=== PATIENT | male | born 1975 | race Caucasian/White ===

== ENCOUNTER 2020-06-20 19:58 | Emergency (ER) | payer BC ==
[2020-06-20] MEDS: Alum Hydrox/Mag Hydrox/Simeth 30 ML, Lidocaine 2% 15 ML PO ONE ×2 (20:22)
--- NOTE | 2020-06-20 20:43 | EDM.PDOC ---
ED HPI GENERAL MEDICAL PROBLEM - General Chief Complaint: Abdominal Pain Stated Complaint: ABDOMINAL PAIN Time Seen by Provider: 06/20/20 20:27 Source of Information: Reports: Patient History Limitations: Reports: No Limitations - History of Present Illness INITIAL COMMENTS - FREE TEXT/NARRATIVE: Patient is a 44-year-old gentleman who presents to the emergency department this evening via private vehicle with a complaint of abdominal pain. Patient states that this is a chronic condition. It happens intermittently, however, after eating this evening he felt an ache in his upper abdomen. He took a Zantac and ibuprofen and symptoms did not resolve, so decided to present to the ER. He's had similar symptoms in the past, but it went away quickly. Patient denies chest pain, shortness of breath, nausea, vomiting, diarrhea, dysuria, testicular pain, flank pain, fever, blood in stool, out of area travel, or concern for covid exposure. Onset: Gradual Duration: Chronic Location: Reports: Abdomen Quality: Reports: Ache Severity: Mild Improves with: Reports: Other (Spontaneously) Worsens with: Reports: Eating Associated Symptoms: Reports: No Other Symptoms. Denies: Chest Pain, Fever/Chills, Nausea/Vomiting, Shortness of Breath - Related Data Allergies Allergy/AdvReac Type Severity Reaction Status Date / Time No Known Drug Allergies Allergy Cannot Verified 06/20/20 20:59 Remember Home Meds: Home Meds Aspirin [Halfprin] 81 mg PO DAILY 06/20/20 [History] Flaxseed Oil 1 cap PO DAILY 06/20/20 [History] Losartan [Cozaar] 50 mg PO DAILY 06/20/20 [History] Montelukast [Singulair] 10 mg PO BEDTIME 06/20/20 [History] Brewster-3 Fatty Acids/Fish Oil [Fish Oil 1,000 mg Softgel] 1,000 mg PO DAILY 06/20/20 [History] Omeprazole 20 mg PO QAM 06/20/20 [History] Simvastatin 20 mg PO BEDTIME 06/20/20 [History] amLODIPine [Norvasc] 5 mg PO DAILY 06/20/20 [History] hydroCHLOROthiazide [Hydrochlorothiazide] 12.5 mg PO DAILY 06/20/20 [History] ED ROS GENERAL - Review of Systems Review Of Systems: Comprehensive ROS is negative, except as noted in HPI. Constitutional: Reports: No Symptoms HEENT: Reports: No Symptoms Respiratory: Reports: No Symptoms Cardiovascular: Reports: No Symptoms Endocrine: Reports: No Symptoms GI/Abdominal: Reports: Abdominal Pain : Reports: No Symptoms Musculoskeletal: Reports: No Symptoms Skin: Reports: No Symptoms Neurological: Reports: No Symptoms Psychiatric: Reports: No Symptoms Hematologic/Lymphatic: Reports: No Symptoms Immunologic: Reports: No Symptoms ED EXAM, GI/ABD - Physical Exam Exam: See Below Exam Limited By: No Limitations General Appearance: Alert, WD/WN, No Apparent Distress Nose: Normal Inspection, Normal Mucosa, No Blood Throat/Mouth: Normal Inspection, Normal Oropharynx, No Airway Compromise Head: Atraumatic, Normocephalic Neck: Normal Inspection, Thyromegaly Respiratory/Chest: No Respiratory Distress, Lungs Clear, No Accessory Muscle Use, Chest Non-Tender Cardiovascular: Regular Rate, Rhythm, No Murmur GI/Abdominal Exam: Normal Bowel Sounds, Soft, Non-Tender, No Organomegaly, No Distention, No Abnormal Bruit, No Mass, Other (No abdominal discomfort while in the emergency department.) (Male) Exam: No Hernia, Normal Inspection Back Exam: Normal Inspection. No: CVA Tenderness (L), CVA Tenderness (R) Extremities: Normal Inspection Neurological: Alert Psychiatric: Normal Affect, Normal Mood Skin Exam: Warm, Dry, Intact, Normal Color, No Rash Course - Vital Signs Last Recorded V/S: Last Vital Signs Temp 97.1 F 06/20/20 20:29 Pulse 93 06/20/20 20:29 Resp 20 06/20/20 20:29 BP 160/90 H 06/20/20 20:29 Pulse Ox 95 06/20/20 20:29 - Orders/Labs/Meds Labs: Laboratory Tests 06/20/20 06/20/20 Range/Units 20:30 20:30 WBC 8.42 (5.00-10.00) 10^3/uL RBC 5.92 (4.50-6.00) 10^6/uL Hgb 17.4 H (13.0-17.0) g/dL Hct 48.1 (40.0-52.0) % MCV 81.3 L (82.0-92.0) fL MCH 29.4 (27.0-31.0) pg MCHC 36.2 H (32.0-36.0) g/dL RDW 12.5 (11.5-14.5) % Plt Count 239 (150-400) 10^3/uL MPV 10.4 (7.4-10.4) fL Immature Gran % (Auto) 0.1 (0.0-5.0) % Neut % (Auto) 60.6 (50.0-70.0) % Lymph % (Auto) 22.9 (20.0-40.0) % [place] % (Auto) 8.9 H (2.0-8.0) % Eos % (Auto) 6.8 H (1.0-3.0) % Baso % (Auto) 0.7 (0.0-1.0) % Neut # (Auto) 5.10 (2.50-7.00) 10^3/uL Lymph # (Auto) 1.93 (1.00-4.00) 10^3/uL [place] # (Auto) 0.75 (0.10-0.80) 10^3/uL Eos # (Auto) 0.57 H (0.10-0.30) 10^3/uL Baso # (Auto) 0.06 (0.00-0.10) 10^3/uL Immature Gran # (Auto) 0.01 (0.00-0.50) 10^3/uL Sodium 142 (136-145) mmol/L Potassium 3.6 (3.3-5.3) mmol/L Chloride 104 (98-115) mmol/L Carbon Dioxide 26.4 (21.0-32.0) mmol/L Anion Gap 15.2 H (5-15) mmol/L BUN 17 (6-25) mg/dL Creatinine 0.84 (0.51-1.17) mg/dL Est Cr Clr Drug Dosing 123.17 mL/min Estimated GFR (MDRD) > 60 mL/min Glucose 113 H (75 - 99) mg/dL Calcium 8.7 (8.7-10.3) mg/dL Total Bilirubin 0.4 (0.2-1.0) mg/dL AST 28 (15-37) U/L ALT 54 (12-78) U/L Alkaline Phosphatase 100 (46-116) IU/L Total Protein 8.0 (6.4-8.2) g/dL Albumin 4.10 (3.00-4.80) g/dL Lipase 87 (73-393) U/L Meds: Medications Discontinued Medications Generic Name Dose Route Start Last Admin Trade Name August PRN Reason Stop Dose Admin Al Hydroxide/Mg Hydroxide 30 0 ml 06/20/20 20:17 06/20/20 20:22 ml/ Lidocaine HCl 15 ml PO 06/20/20 20:18 45 ml ONETIME ONE Administration - Re-Assessments/Exams Free Text/Narrative Re-Assessment/Exam: 06/20/20 21:14 Patient afebrile, vital signs stable, no discomfort in ER. Patient given GI cocktail. Patient will follow-up with PCP on Monday Departure - Departure Time of Disposition: 21:15 Disposition: Home, Self-Care 01 Clinical Impression: Gastritis Qualifiers: Gastritis type: unspecified gastritis Chronicity: acute Gastritis bleeding: without bleeding Qualified Code(s): K29.00 - Acute gastritis without bleeding - Discharge Information Instructions: Gastritis, Adult, [id number] Referrals: Anitha Navarro PA-C [Primary Care Provider] - Forms: ED Department Discharge Additional Instructions: Follow-up at [facility] on Monday. Return to emergency department sooner symptoms continue or worsen. Sepsis Event Note (ED) - Focused Exam Vital Signs: Vital Signs Temp Pulse Resp BP Pulse Ox 06/20/20 20:29 97.1 F 93 20 160/90 H 95 - Assessment/Plan Assessment:: Gastritis Plan: Follow-up with PCP
[2020-06-20 20:59] LABS: ANION GAP 15.2 mmol/L (5-15); CHLORIDE,CL 104 mmol/L (98-115); SODIUM,NA 142 mmol/L (136-145)
== END 2020-06-20 21:30 | disposition home or self-care (01) ==
LOC: KA.ED 19:58
DX: K29.00 Acute gastritis without bleeding (principal); Z79.899 Other long term (current) drug therapy; Z79.82 Long term (current) use of aspirin
CPT/HCPCS: 36415; 80053; 83690; 85025; 99284; A9270; 99283